=== PATIENT | female | born 1940 | race Caucasian/White ===

== ENCOUNTER 2023-07-10 08:07 | Outpatient (CLI) | payer MEDICARE, BC ==
[2023-07-10 09:26] LABS: Hematocrit 40.1 % (34.9-44.5); Hemoglobin 13.1 g/dL (12.0-15.5)
[2023-07-10 10:06] LABS: Anion Gap 15 mmol/L (10-20); BUN (Urea Nitrogen) 17 mg/dL (9.8-20.1); Calc. Creatinine Clearance 0 mL/min (70-130); Calcium 8.9 mg/dL (7.8-10.44); Carbon Dioxide 24 mmol/L (23-31); Chloride 107 mmol/L (98-107); Estimated GFR 76; Glucose 138 mg/dL (83-110); Sodium 142 mmol/L (136-145)
== END 2023-07-10 08:08 | disposition home or self-care (01) ==
LOC: CSHLAB 08:07
PROVIDERS: ATTEND Otolaryngology Plastic Surgery within the Head & Neck
DX: Z01.818 Encounter for other preprocedural examination (principal); K14.8 Other diseases of tongue
CPT/HCPCS: 80048; 85014; 85018; 93005; 93010

== ENCOUNTER 2023-07-15 08:05 | Day surgery (SDC) | payer MEDICARE, BC ==
[2023-07-10 08:44] VITALS: BMI 25.2
[2023-07-15] MEDS ORDERED: PROPOFOL 20 ML ONE (10:42)
[2023-07-15] MEDS ORDERED: Ondansetron PF 4 MG/2 ML Vial ONE (10:42)
[2023-07-15] MEDS ORDERED: Rocuronium Bromide 10 MG/ML (10ML VIAL) ONE (10:42)
[2023-07-15] MEDS ORDERED: Dexamethasone 20 MG/5 ML VIAL ONE (10:42)
[2023-07-15] MEDS ORDERED: Midazolam HCl 2 mg/2 ml Vial ONE (10:45)
[2023-07-15] MEDS ORDERED: fentaNYL 50 mcg/mL 1 mL Vial ONE (10:45)
[2023-07-15] MEDS ORDERED: EPINEPHrine 1 MG/ML AMP ONE (11:03)
[2023-07-15] MEDS ORDERED: Lidocaine 1% w/Epinephrine 1:100K 20 ML VIAL ONE (11:03)
== END 2023-07-15 12:55 | disposition home or self-care (01) ==
LOC: CSHSDC 08:05
PROVIDERS: ATTEND Otolaryngology Plastic Surgery within the Head & Neck
PROC: 0CBM8ZX Excision of Pharynx, Via Natural or Artificial Opening Endoscopic, Diagnostic (ICD-10-PCS; principal; 2023-07-15)
PROC: 0CDT8ZZ Extraction of Right Vocal Cord, Via Natural or Artificial Opening Endoscopic (ICD-10-PCS; 2023-07-15)
DX: K14.8 Other diseases of tongue (principal); K13.29 Other disturbances of oral epithelium, including tongue; H26.9 Unspecified cataract; E11.9 Type 2 diabetes mellitus without complications; Z79.84 Long term (current) use of oral hypoglycemic drugs; Z79.899 Other long term (current) drug therapy; Z91.040 Latex allergy status; Z98.890 Other specified postprocedural states
CPT/HCPCS: 41112; J3010; 88305; 93005; 93010; J0171; J1100; J2250; J2405; J2704

== ENCOUNTER 2023-08-22 08:49 | Outpatient (CLI) | payer MEDICARE, BC | END 2023-08-22 08:50 | disposition home or self-care (01) | LOC: CSHMAMMO 08:49 | PROVIDERS: ATTEND Internal Medicine | DX: Z13.820 Encounter for screening for osteoporosis (principal); M85.852 Other specified disorders of bone density and structure, left thigh | CPT/HCPCS: 77080 ==

== ENCOUNTER 2024-07-30 12:58 | Outpatient (CLI) | payer MEDICARE ==
[2024-07-30 14:15] LABS: Hematocrit 39.8 % (34.9-44.5); Hemoglobin 13.2 g/dL (12.0-15.5)
[2024-07-30 14:27] LABS: Anion Gap 16 mmol/L (10-20); BUN (Urea Nitrogen) 23 mg/dL (9.8-20.1); Calc. Creatinine Clearance 0 mL/min (70-130); Calcium 8.9 mg/dL (7.8-10.44); Carbon Dioxide 25 mmol/L (23-31); Chloride 105 mmol/L (98-107); Estimated GFR 61; Glucose 183 mg/dL (83-110); Potassium 3.6 mmol/L (3.5-5.1); Sodium 142 mmol/L (136-145)
== END 2024-07-30 12:59 | disposition home or self-care (01) ==
LOC: CSHLAB 12:58
PROVIDERS: ATTEND Otolaryngology Plastic Surgery within the Head & Neck
DX: Z01.818 Encounter for other preprocedural examination (principal); K14.9 Disease of tongue, unspecified; K14.0 Glossitis
CPT/HCPCS: 80048; 85014; 85018; 93005; 93010

== ENCOUNTER 2024-08-06 06:45 | Day surgery (SDC) | payer MEDICARE ==
[2024-07-30 13:23] VITALS: BMI 25.6
[2024-08-06] MEDS ORDERED: Dexamethasone 20 MG/5 ML VIAL ONE (10:39)
[2024-08-06] MEDS ORDERED: Ondansetron PF 4 MG/2 ML Vial ONE (10:39)
[2024-08-06] MEDS ORDERED: fentaNYL 50 mcg/mL 1 mL Vial ONE (10:39)
[2024-08-06] MEDS ORDERED: Lidocaine 1% PF 5 ML VIAL ONE (10:39)
[2024-08-06] MEDS ORDERED: Rocuronium Bromide 10 MG/ML (10ML VIAL) ONE (10:39)
[2024-08-06] MEDS ORDERED: PROPOFOL 20 ML ONE (10:39)
[2024-08-06] MEDS ORDERED: SUGAMMADEX SODIUM 200 MG/2 ML VIAL ONE (10:40)
[2024-08-06] MEDS ORDERED: EPINEPHrine 1 MG/ML AMP ONE (11:07)
[2024-08-06] MEDS ORDERED: HYDROcodone/Acetaminophen 5/325 mg Tablet ONE (12:12)
== END 2024-08-06 13:00 | disposition home or self-care (01) ==
LOC: CSHSDC 06:45
PROVIDERS: ATTEND Otolaryngology Plastic Surgery within the Head & Neck
PROC: 0CB7XZZ Excision of Tongue, External Approach (ICD-10-PCS; principal; 2024-08-06)
DX: K14.8 Other diseases of tongue (principal); E11.9 Type 2 diabetes mellitus without complications; E03.9 Hypothyroidism, unspecified; E78.00 Pure hypercholesterolemia, unspecified; H26.9 Unspecified cataract; Z96.652 Presence of left artificial knee joint; Z96.641 Presence of right artificial hip joint; Z90.710 Acquired absence of both cervix and uterus; Z91.040 Latex allergy status; Z79.84 Long term (current) use of oral hypoglycemic drugs; Z79.899 Other long term (current) drug therapy
CPT/HCPCS: 41110; J0171; J1100; J2405; J2704; J3010; 88305